=== PATIENT | female | born 1950 | race Caucasian/White ===

== ENCOUNTER 2021-11-24 08:22 | Inpatient (IN) ==
--- NOTE | 2021-11-17 14:13 | EKG ---
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
[2021-11-17 16:41] LABS: Appearance,Urine Clear (Clear); Bilirubin,Urine Negative (Negative); Color,Urine Yellow; Culture Indicated,Urine No; Glucose,Urine (UA) Negative (Negative); Ketones,Urine Negative (Negative); Leukocyte Esterase,Urine Negative /uL (Negative); Mucus,Urine FEW /hpf; Nitrate,Urine Negative (Negative); PH,Urine 5.5 (5.0-9.0); Protein,Urine Negative (Negative); Specific Gravity,Urine >= 1.030 (1.000-1.035); Urine Blood Large ery/mcL (Negative); Urine RBC 114 /hpf (0-3); Urine Squamous Epithelial Cell < 1 /hpf (0-4); Urine Transitional Epi Cells < 1 /hpf (0-2); Urine WBC 1 /hpf (0-4); Urobilinogen,Urine Normal
[2021-11-17 20:08] LABS: Basophils # (Auto) 0.05 K/mcL (0.00-0.30); Basophils % (Auto) 1.1 % (0.0-2.0); Eosinophils # (Auto) 0.34 K/mcL (0.00-0.70); Eosinophils % (Auto) 7.2 % (0.0-7.0); Hematocrit 42.1 % (34.1-44.9); Lymphocytes # (Auto) 1.39 K/mcL (1.50-4.80); Lymphocytes % (Auto) 29.3 % (15.5-49.0); Mean Cell Volume 91.3 fL (80.0-100.0); Mean Corpuscular HGB Conc 30.9 g/dL (31.0-36.0); Mean Platelet Volume 10.4 fL (7.4-10.4); Monocytes # (Auto) 0.45 K/mcL (0.10-0.90); Monocytes % (Auto) 9.5 % (1.0-12.0); Neutrophils % (Auto) 52.9 % (38.0-78.0); Platelet Count 325 K/mcL (140-440); RBC 4.61 M/mcL (3.59-5.38); Red Cell Distribution Width 13.5 % (11.5-14.5); WBC 4.7 K/mcL (4.5-11.0)
[2021-11-17 20:18] LABS: Blood Urea Nitrogen 17 mg/dL (8-23); Calcium 9.2 mg/dL (8.6-10.4); Carbon Dioxide 25 mmol/L (22-30); Chloride 103 mmol/L (96-108); Glomerular Filtration Rate 92; Glucose 80 mg/dL (70-105)
[2021-11-18 00:22] LABS: Hemoglobin A1C 5.4 % Hgb (4.0-6.0)
[~2021-11-24 08:22] MED LIST: 0.9 % SODIUM CHLORIDE 9 ML, KETOROLAC 30 MG, ROPIVACAINE HCL/PF 49.5 ML, EPINEPHrine 0.... IJ SCH; ACETAMINOPHEN 500 MG TABLET PO SCH; CELECOXIB 200 MG CAPSULE PO SCH; GABAPENTIN 300 MG CAPSULE PO SCH; ceFAZolin 2 GM in DEXTROSE 5% IN WATER 50 ML IV SCH; oxyCODONE 10 MG TAB.ER.12H PO SCH
[2021-11-24] MEDS ORDERED: MAGNESIUM SULFATE 2 GM/50 ML BAG IV ONE (10:55)
[2021-11-24] MEDS ORDERED: DEXAMETHASONE 10 MG/ML VIAL ONE (10:55)
[2021-11-24] MEDS ORDERED: PROPOFOL 200 MG/20 ML VIAL IV ONE (10:55)
[2021-11-24] MEDS ORDERED: ONDANSETRON 4 MG/2 ML VIAL ONE (10:55)
[2021-11-24] MEDS ORDERED: ROPIVACAINE HCL/PF 20 ML VIAL IJ ONE (10:55)
[2021-11-24] MEDS ORDERED: KETAMINE 50 MG/ML Syringe (ANEST) IV ONE (10:55)
[2021-11-24] MEDS ORDERED: TRANEXAMIC ACID 1,000 MG/10 ML VIAL ONE (10:55)
[2021-11-24] MEDS ORDERED: LIDOCAINE HCL/PF 100 MG/5 ML SYRINGE IV ONE (10:55)
[2021-11-24] MEDS ORDERED: PHENYLephrine 1 MG/10 ML SYRINGE (ANEST) ONE (10:55)
[2021-11-24] MEDS ORDERED: GLYCOPYRROLATE 0.2 MG/ML VIAL IV ONE (10:55)
--- NOTE | 2021-11-24 11:09 | Discharge Plan ---
Discharge Instructions - TKA Patient Instructions Total Knee Protocol: For Total Knee: Start ROM TEJINDER with stationary bike or rocking chair. Work on gaining full extension of knee. Posterior dislocation precautions provided. Hip abductor strengthening and gait training instructions provided. Apply Cryocuff as instructed. Discharge Plan Patient/Caregiver Discharge Instructions Activity: ambulate only with your walker and as per physical therapy Diet: Regular Diet Prescriptions: New aspirin [Ecotrin Low Strength] 81 mg tablet,delayed release (DR/EC) 81 mg PO BID Qty: 60 0RF docusate sodium 100 mg capsule 100 mg PO BID Qty: 60 0RF hydromorphone 4 mg tablet 4 mg PO Q4H PRN (Reason: pain) Qty: 75 0RF ondansetron 4 mg tablet,disintegrating 4 mg PO Q8H Qty: 30 0RF No Action aspirin 325 mg tablet 650 mg PO QID 0RF Label Comments: HOLDING FOR SURGERY Vitamin C 2,000 mg Tablet Extended Release 2,000 mg PO DAILY 0RF lisinopril-hydrochlorothiazide 10-12.5 mg Tablet 1 tab PO DAILY 0RF vitamin D3-vitamin K2 250 mcg (10,000 unit)-45 mcg Capsule 1 cap PO DAILY 0RF celecoxib [Celebrex] 200 mg Capsule 200 mg PO DAILY 0RF Label Comments: HOLDING FOR SURGERY ibuprofen [Advil] 200 mg Tablet 400 mg PO HS 0RF Label Comments: HOLDING FOR SURGERY cannabidiol cream 1 applic topical HS 0RF gabapentin 300 mg capsule 900 mg PO QID 0RF Other Ambulatory Orders: CPM Discharge Order (ONCE) Location: None Selected Ordered By: Sam Knowles Physical Therapy DC - TKA (Routine) Location: None Selected Ordered By: Sam Knowles Toilet Riser Discharge Order (ONCE) Location: None Selected Ordered By: Sam Knowles Walker (ONCE) Location: None Selected Ordered By: Sam Knowles Follow Up Plan Follow up with: Beto Vargas MD [Physician] - 12/07/21 10:10 am Sam Knowles PA-C [Physician Phlebotomist Associate] - Patient Disposition: Home, Self-Care Prognosis: Good Rehab Potential: Good I certify that the patient requires SNF services: No Overall status at discharge: patient is progressing back to baseline Discharge Orders: Discharge Order (Routine); Ordered 11/25/21 Ordered By: Sam Knowles
[2021-11-24] MEDS ORDERED: GENTAMICIN SULFATE 800 MG/20 ML VIAL IR ONE (11:24)
[2021-11-24] MEDS ORDERED: NALOXONE HCL 0.4 MG/ML VIAL IV PRN (11:53)
[2021-11-24] MEDS ORDERED: ONDANSETRON 4 MG/2 ML VIAL IV PRN ×2 (11:53→12:06)
[2021-11-24] MEDS ORDERED: LABETALOL 5 MG/ML ML IV PRN (11:53)
[2021-11-24] MEDS ORDERED: METOPROLOL TARTRATE 5 MG/5 ML VIAL IV PRN (11:53)
[2021-11-24] MEDS ORDERED: ACETAMINOPHEN 1,000 MG/100 ML BAG IV ONE (11:53)
[2021-11-24] MEDS ORDERED: BENZOCAINE/MENTHOL 1 LOZENGE PO PRN (11:53)
[2021-11-24] MEDS ORDERED: fentaNYL 100 MCG/2 ML VIAL IV PRN (11:53)
[2021-11-24] MEDS ORDERED: METHOCARBAMOL 1,000 MG/10 ML VIAL IV PRN (11:53)
[2021-11-24] MEDS ORDERED: LACTATED RINGERS 250 ML IV PRN (11:53)
[2021-11-24] MEDS ORDERED: IPRATROPIUM/ALBUTEROL 3 ML AMPUL.NEB NEB PRN (11:53)
[2021-11-24] MEDS ORDERED: LACTATED RINGERS 1,000 ML IV SCH (12:00)
--- NOTE | 2021-11-24 12:05 | Brief Operative Note ---
Brief Operative Note Date of procedure: 11/24/21 Pre-op diagnosis: left knee ligament laxity and instability Post-op diagnosis: same Procedure: Left tka revision 1 comp and synovectomy Grafts/Implants: Yes Anesthesia: GETA Findings: no wbc in tissue Complications: none Surgeon: Beto Vargas School Traffic Guard: Sam Knowles Estimated blood loss (cc): 40 Tourniquet Time (Minutes): 30 Specimens Removed/Pathology: other Condition: stable Disposition: PACU
[2021-11-24] MEDS ORDERED: POLYETHYLENE GLYCOL 3350 17 GM PACKET PO PRN (12:06)
[2021-11-24] MEDS ORDERED: BISACODYL 10 MG SUPP.RECT PR PRN (12:06)
[2021-11-24] MEDS ORDERED: FLEETS ADULT ENEMA PR PRN (12:06)
[2021-11-24] MEDS ORDERED: TEMAZEPAM 15 MG CAPSULE PO PRN (12:06)
[2021-11-24] MEDS ORDERED: ACETAMINOPHEN 325 MG TABLET PO PRN (12:06)
[2021-11-24] MEDS ORDERED: MAGNESIUM HYDROXIDE 30 ML ORAL.SUSP PO PRN (12:06)
[2021-11-24] MEDS ORDERED: TRANEXAMIC ACID 1,000 MG/10 ML VIAL IV SCH (12:06)
--- NOTE | 2021-11-24 12:53 | Operative Note ---
DATE OF OPERATION: 11/24/2021 PREOPERATIVE DIAGNOSIS: Left knee instability, chronic, and synovitis. POSTOPERATIVE DIAGNOSIS: Left knee instability, chronic, and synovitis. PROCEDURE: Left knee synovectomy as well as revision of the poly liner, one component. SURGEON: Beto Vargas M.D. FOOD PRODUCT INSPECTOR: Sam Knowles PA-C. This providers expertise and technical skill were required throughout the case. The KULDEEP assisted with preoperative coordination, intraoperative retraction, wound closure, and dressing and splint application, as well as postoperative documentation and care coordination. ANESTHESIA: General LMA anesthesia. COMPLICATIONS: None. TOURNIQUET TIME: 30 minutes @250 mmHg. ESTIMATED BLOOD LOSS: 50 mL. IMPLANTS: We exchanged a 14 mm poly for a 17 mm poly on the Elizondo and Nephew knee with a deep dish component. We did a lateral facet removal of the patella and a synovectomy of the joint. DESCRIPTION OF PROCEDURE: The patient was brought to the operating room, put to sleep with general LMA anesthesia. Once asleep, the patient had the left knee sterilely prepped and draped in the usual sterile fashion on the left side. A timeout was performed, confirming it as the operative site by initials, consent form, and x-rays. Ioban was placed over the skin and we confirmed that preoperative antibiotics and tranexamic acid had been given. Once done, we made a midline incision through her prior scar. Midvastus approach was performed. We inspected the joint. It showed substantial laxity laterally and in flexion. With this in balance, we then removed the old poly. We stripped the medial collateral ligament to balance the knee, both medial to lateral. Once this was done, we removed synovial tissue posteriorly as well as in the medial and lateral gutters and a portion of this was sent to the pathologist. He evaluated the tissue during the case and it was found to have no white blood cells within the synovial tissue. We proceeded with revising the knee after thorough irrigation. I injected the posterior capsule with the post-injection formula of 50 mL of a combination of morphine, Marcaine and Toradol. Once done, we were able to then trial the component from a 14 originally to the size 17. The 17 gave stability throughout the arc of motion. We irrigated thoroughly. We then implanted the 17 permanent poly liner with a deep dish for more stability. We irrigated this. It was stable throughout the arc of motion. We then performed a lateral facet excision as some of the ____ overhung the patella. We also removed the soft tissue around the patella and some bone that had tried to go up over the patella. At this point, we irrigated thoroughly and after revising the patella, we thoroughly irrigated the knee. The synovectomy was completed in medial and lateral gutters. Tourniquet was deflated. We controlled all bleeding with the Bovie. Once done, we closed the midvastus approach with #1 Stratafix x2 sutures. We closed the skin with Stratafix and adhesive closure. The patient tolerated this well. There was no complication. Sterile bandage was applied. The tourniquet time 30 minutes. RBH:kh Job ID: [id number] Doc ID: [id number] Beto Vargas MD
--- NOTE | 2021-11-24 12:57 | XRay Report ---
INDICATION: Post-Op Total Knee TECHNIQUE: AP and crosstable lateral COMPARISON: Previous examination dated 10/31/2021 FINDINGS:Status post revision of left total knee arthroplasty. Prosthetic components are in anatomic positions IMPRESSION: Left total knee arthroplasty Interpreted and Authenticated by: Adonis Truong 11/24/21
[2021-11-24] MEDS: 0.9 % SODIUM CHLORIDE 10 ML SYRINGE IV SCH ×2 (14:16→20:52)
[2021-11-24] MEDS: HYDROmorphone 1 MG/ML SYRINGE IV PRN ×2 (14:21→18:05)
[2021-11-24] MEDS: 0.45 % SODIUM CHLORIDE 1,000 ML IV SCH (14:22)
[2021-11-24] MEDS: GABAPENTIN 300 MG CAPSULE PO SCH ×3 (15:27→20:42)
[2021-11-24] MEDS: ceFAZolin 1 GM VIAL IV SCH (17:45)
[2021-11-24] MEDS: BENZOCAINE/MENTHOL 1 LOZENGE PO PRN (19:24)
[2021-11-24] MEDS: DOCUSATE SODIUM 100 MG CAPSULE PO SCH (20:43)
[2021-11-24] MEDS: HYDROcodone/APAP 10/325MG TABLET PO PRN ×2 (20:47→21:42)
[2021-11-24] MEDS ORDERED: SENNOSIDES 1 TABLET PO SCH (21:00)
[2021-11-24] MEDS ORDERED: IBUPROFEN 200 MG TABLET PO SCH (21:00)
[2021-11-24] MEDS ORDERED: CANNABIDIOL TOPICAL SCH (21:00)
[2021-11-25] MEDS: BENZOCAINE/MENTHOL 1 LOZENGE PO PRN (00:41)
[2021-11-25] MEDS: 0.45 % SODIUM CHLORIDE 1,000 ML IV SCH ×2 (01:36→07:25)
[2021-11-25] MEDS: ceFAZolin 1 GM VIAL IV SCH (01:37)
[2021-11-25] MEDS: HYDROcodone/APAP 10/325MG TABLET PO PRN ×3 (02:31→09:10)
[2021-11-25] MEDS: 0.9 % SODIUM CHLORIDE 10 ML SYRINGE IV SCH (04:30)
[2021-11-25] MEDS ORDERED: VITAMIN D3 125 MCG TABLET PO SCH (09:00)
[2021-11-25] MEDS ORDERED: CELECOXIB 200 MG CAPSULE PO SCH (09:00)
[2021-11-25] MEDS ORDERED: HYDROCHLOROTHIAZIDE 12.5 MG CAPSULE PO SCH (09:00)
[2021-11-25] MEDS ORDERED: LISINOPRIL 10 MG TABLET PO SCH (09:00)
[2021-11-25] MEDS ORDERED: ASCORBIC ACID 500 MG TABLET PO SCH (09:00)
[2021-11-25] MEDS: DOCUSATE SODIUM 100 MG CAPSULE PO SCH (09:10)
[2021-11-25] MEDS: GABAPENTIN 300 MG CAPSULE PO SCH (09:10)
--- NOTE | 2021-11-25 09:52 | Orthopedic Progress Note ---
SUBJECTIVE Subjective Patient information: Note initiated : 11/25/21 at 9:48 am Service Date, if different from initiated Date: [] Patient: Fany Schrader 71 y/o F admitted on for Left Total Knee Arthroplasty Revision. Chief Complaint: [] Principal diagnosis: left knee revision with polyliner Constitutional Vitals: Vital Signs Temp Pulse Resp BP Pulse Ox 97.7 F 69 16 103/56 90 11/25/21 06:43 11/25/21 06:43 11/25/21 07:17 11/25/21 06:43 11/25/21 07:17 Period Temp Pulse Resp BP Sys/Vazquez Pulse Ox Last 24 Hr 95.9 F-98.2 F 67-95 12-20 103-170/56-78 90-100 Intake and Output 11/24/21 11/25/21 11/25/21 21:59 05:59 13:59 Intake Total 1280 1750 Output Total 551 400 175 Balance 729 1350 -175 Intake & Output: Intake & Output 11/24/21 11/25/21 11/25/21 21:59 05:59 13:59 Intake Total 1280 1750 Output Total 551 400 175 Balance 729 1350 -175 Intake: IV 1000 Sodium Chloride 0.45% 1,000 ml 1000 @ 100 mls/hr IV .Q10H [facility] Rx#: [id number] Oral 1280 750 Output: Void Amount 550 400 175 # of times incontinent of urine 1 Other: Meal Dinner Percent of Meal Consumed 100% Urine Appearance Cloudy Clear Urine Color Pale Bright Yellow Urine Odor Normal Normal # Voids 1 General appearance: cooperative and no acute distress Expanded Lower Extremity Exam Knee exam: Present full knee extension Leg image: 1. OBJ DATA Labs CBC & Chem 7: 11/25/21 05:52 11/17/21 11:06 Meds: Medications Acetaminophen (Acetaminophen 325 Mg Tablet) 650 mg PO Q6HP PRN; Protocol PRN Reason: Per Pain Protocol/Fever > 101 Last Admin: 11/24/21 13:43 Dose: 650 mg Documented by: Hydrocodone Bitart/Acetaminophen (Hydrocodone/Apap 10/325mg Tablet) 1 - 2 tab PO Q4HP PRN; Protocol PRN Reason: Per Pain Protocol Last Admin: 11/25/21 09:10 Dose: 2 tab Documented by: Ascorbic Acid (Ascorbic Acid 500 Mg Tablet) 2,000 mg PO DAILY [facility] Last Admin: 11/25/21 09:11 Dose: 2,000 mg Documented by: Bisacodyl (Bisacodyl 10 Mg Supp.Rect) 10 mg NC Q2-3DAYS PRN PRN Reason: Constipation Celecoxib (Celecoxib 200 Mg Capsule) 200 mg PO DAILY [facility] Last Admin: 11/25/21 09:10 Dose: 200 mg Documented by: Docusate Sodium (Docusate Sodium 100 Mg Capsule) 100 mg PO BID [facility] Last Admin: 11/25/21 09:10 Dose: 100 mg Documented by: Gabapentin (Gabapentin 300 Mg Capsule) 900 mg PO QID [facility] Last Admin: 11/25/21 09:10 Dose: 900 mg Documented by: Hydrochlorothiazide (Hydrochlorothiazide 12.5 Mg Capsule) 12.5 mg PO DAILY [facility] Last Admin: 11/25/21 09:12 Dose: Not Given Documented by: Hydromorphone HCl (Hydromorphone 1 Mg/Ml Syringe) 0.5 - 2 mg IV Q2HP PRN; Protocol PRN Reason: Per Pain Protocol Last Admin: 11/24/21 18:05 Dose: 0.5 mg Documented by: Sodium Chloride (Sodium Chloride 0.45%) 1,000 mls @ 100 mls/hr IV .Q10H [facility] Last Admin: 11/25/21 07:25 Dose: Not Given Documented by: Ibuprofen (Ibuprofen 200 Mg Tablet) 400 mg PO HS [facility] Last Admin: 11/24/21 20:42 Dose: 400 mg Documented by: Lisinopril (Lisinopril 10 Mg Tablet) 10 mg PO DAILY [facility] Last Admin: 11/25/21 09:12 Dose: Not Given Documented by: Magnesium Hydroxide (Magnesium Hydroxide 30 Ml Oral.Susp) 30 ml PO BIDP PRN PRN Reason: Constipation Ondansetron HCl (Ondansetron 4 Mg/2 Ml Vial) 4 mg IV Q4HP PRN PRN Reason: Nausea And Vomiting Polyethylene Glycol (Polyethylene Glycol 3350 17 Gm Packet) 17 gm PO DAILYP PRN PRN Reason: Constipation Senna (Sennosides 1 Tablet) 2 tab PO [facility] Last Admin: 11/24/21 20:43 Dose: 2 tab Documented by: Sodium Biphosphate/Sodium Phosphate (Fleets Adult Enema) 1 dose NC Q3-4DAYS PRN PRN Reason: Constipation Sodium Chloride (0.9 % Sodium Chloride 10 Ml Syringe) 10 ml IV Q8 [facility] Last Admin: 11/25/21 04:30 Dose: 10 ml Documented by: Temazepam (Temazepam 15 Mg Capsule) 15 mg PO HSP PRN PRN Reason: Insomnia Throat Lozenges (Benzocaine/Menthol 1 Lozenge) 1 lozenge PO PRN PRN PRN Reason: Sore Throat Last Admin: 11/25/21 00:41 Dose: 1 lozenge Documented by: Vitamin D (Vitamin D3 125 Mcg Tablet) 250 mcg PO DAILY [facility] Last Admin: 11/25/21 09:10 Dose: 250 mcg Documented by: A/P Time Spent With Patient Time: Total time spent is greater than 50% in coordination of care (as documented) at patient's floor/unit and/or counseling patient:
--- NOTE | 2021-11-25 09:54 | Orthopedic Progress Note ---
SUBJECTIVE Subjective Patient information: Note initiated : 11/25/21 at 9:52 am Service Date, if different from initiated Date: [] Patient: Fany Schrader 71 y/o F admitted on for Left Total Knee Arthroplasty Revision. Chief Complaint: [] Principal diagnosis: left knee revision with polyliner Constitutional Vitals: Vital Signs Temp Pulse Resp BP Pulse Ox 97.7 F 69 16 103/56 90 11/25/21 06:43 11/25/21 06:43 11/25/21 07:17 11/25/21 06:43 11/25/21 07:17 Period Temp Pulse Resp BP Sys/Vazquez Pulse Ox Last 24 Hr 95.9 F-98.2 F 67-95 12-20 103-170/56-78 90-100 Intake and Output 11/24/21 11/25/21 11/25/21 21:59 05:59 13:59 Intake Total 1280 1750 Output Total 551 400 175 Balance 729 1350 -175 Intake & Output: Intake & Output 11/24/21 11/25/21 11/25/21 21:59 05:59 13:59 Intake Total 1280 1750 Output Total 551 400 175 Balance 729 1350 -175 Intake: IV 1000 Sodium Chloride 0.45% 1,000 ml 1000 @ 100 mls/hr IV .Q10H [facility] Rx#: [id number] Oral 1280 750 Output: Void Amount 550 400 175 # of times incontinent of urine 1 Other: Meal Dinner Percent of Meal Consumed 100% Urine Appearance Cloudy Clear Urine Color Pale Bright Yellow Urine Odor Normal Normal # Voids 1 OBJ DATA Labs CBC & Chem 7: 11/25/21 05:52 11/17/21 11:06 Meds: Medications Acetaminophen (Acetaminophen 325 Mg Tablet) 650 mg PO Q6HP PRN; Protocol PRN Reason: Per Pain Protocol/Fever > 101 Last Admin: 11/24/21 13:43 Dose: 650 mg Documented by: Hydrocodone Bitart/Acetaminophen (Hydrocodone/Apap 10/325mg Tablet) 1 - 2 tab PO Q4HP PRN; Protocol PRN Reason: Per Pain Protocol Last Admin: 11/25/21 09:10 Dose: 2 tab Documented by: Ascorbic Acid (Ascorbic Acid 500 Mg Tablet) 2,000 mg PO DAILY [facility] Last Admin: 11/25/21 09:11 Dose: 2,000 mg Documented by: Bisacodyl (Bisacodyl 10 Mg Supp.Rect) 10 mg [place] Q2-3DAYS PRN PRN Reason: Constipation Celecoxib (Celecoxib 200 Mg Capsule) 200 mg PO DAILY [facility] Last Admin: 11/25/21 09:10 Dose: 200 mg Documented by: Docusate Sodium (Docusate Sodium 100 Mg Capsule) 100 mg PO BID [facility] Last Admin: 11/25/21 09:10 Dose: 100 mg Documented by: Gabapentin (Gabapentin 300 Mg Capsule) 900 mg PO QID [facility] Last Admin: 11/25/21 09:10 Dose: 900 mg Documented by: Hydrochlorothiazide (Hydrochlorothiazide 12.5 Mg Capsule) 12.5 mg PO DAILY [facility] Last Admin: 11/25/21 09:12 Dose: Not Given Documented by: Hydromorphone HCl (Hydromorphone 1 Mg/Ml Syringe) 0.5 - 2 mg IV Q2HP PRN; Protocol PRN Reason: Per Pain Protocol Last Admin: 11/24/21 18:05 Dose: 0.5 mg Documented by: Sodium Chloride (Sodium Chloride 0.45%) 1,000 mls @ 100 mls/hr IV .Q10H [facility] Last Admin: 11/25/21 07:25 Dose: Not Given Documented by: Ibuprofen (Ibuprofen 200 Mg Tablet) 400 mg PO [facility] Last Admin: 11/24/21 20:42 Dose: 400 mg Documented by: Lisinopril (Lisinopril 10 Mg Tablet) 10 mg PO DAILY [facility] Last Admin: 11/25/21 09:12 Dose: Not Given Documented by: Magnesium Hydroxide (Magnesium Hydroxide 30 Ml Oral.Susp) 30 ml PO BIDP PRN PRN Reason: Constipation Ondansetron HCl (Ondansetron 4 Mg/2 Ml Vial) 4 mg IV Q4HP PRN PRN Reason: Nausea And Vomiting Polyethylene Glycol (Polyethylene Glycol 3350 17 Gm Packet) 17 gm PO DAILYP PRN PRN Reason: Constipation Senna (Sennosides 1 Tablet) 2 tab PO HS [facility] Last Admin: 11/24/21 20:43 Dose: 2 tab Documented by: Sodium Biphosphate/Sodium Phosphate (Fleets Adult Enema) 1 dose [place] Q3-4DAYS PRN PRN Reason: Constipation Sodium Chloride (0.9 % Sodium Chloride 10 Ml Syringe) 10 ml IV Q8 [facility] Last Admin: 11/25/21 04:30 Dose: 10 ml Documented by: Temazepam (Temazepam 15 Mg Capsule) 15 mg PO HSP PRN PRN Reason: Insomnia Throat Lozenges (Benzocaine/Menthol 1 Lozenge) 1 lozenge PO PRN PRN PRN Reason: Sore Throat Last Admin: 11/25/21 00:41 Dose: 1 lozenge Documented by: Vitamin D (Vitamin D3 125 Mcg Tablet) 250 mcg PO DAILY [facility] Last Admin: 11/25/21 09:10 Dose: 250 mcg Documented by: A/P Narrative A/P Narrative: dc home and drop foot is partially recovered ie ext to neutral drop foot should continue to resolve dressing removed Time Spent With Patient Time: Total time spent is greater than 50% in coordination of care (as documented) at patient's floor/unit and/or counseling patient: Total time spent with greater than 50% in coordination of care (as documented) at patient's floor/unit and/or counseling patient:: 15 - 24 minutes
== END 2021-11-25 11:47 | disposition home or self-care (01) | DRG 489 ==
LOC: SUR 08:22 → MEDSUR 08:22 → EDSTATUS 11:00 → MEDSUR 13:10 → SUR 11-25 11:47 → MEDSUR 12-25 12:57
PROVIDERS: ADMIT Orthopaedic Surgery; ATTEND Orthopaedic Surgery